=== PATIENT | female | born 1995 | race Asian ===

== ENCOUNTER 2018-07-18 13:24 | Emergency (ER) | payer BC ==
[2018-07-18 14:34] VITALS: BP 121/67
--- NOTE | 2018-07-18 14:34 | ED ---
Skin Complaint - HPI Summary HPI Summary: This patient is a 23 year old F presenting to ED with a chief complaint of rashes on bilateral arms, bilateral palms, and bilateral legs since three days ago. The CC is described as itchy, beginning on the ankles but not on the soles of feet. Patient rates pain 0/10 in severity. Symptoms aggravated by scratching. Symptoms alleviated by nothing. She reports itching on the stomach but no rash on the stomach. She denies sore throat, runny nose, fever, chills, and myalgia. PMHx of skin allergy on the back different from this episode. PSHx of appendix surgery. FHx of HTN in mother and grandmother and DM in grandmother. Patient drinks alcohol occasionally but does not smoke or use substances. - History of Current Complaint Chief Complaint: EDRashSkinAbscess Time Seen by Provider: 07/18/18 14:20 Stated Complaint: RASH PER PT Hx Obtained From: Patient Onset/Duration: Started Days Ago - 3 days, Still Present, Worse Since - Spreading to palms today Current Severity: None Pain Intensity: 0 Pain Scale Used: 0-10 Numeric Skin Location: Arm, Hand - Palm, Leg, Other: - Not on soles or stomach Aggravating Symptom(s): Other: - Scratching Alleviating Symptom(s): Nothing Associated Signs & Symptoms: Negative - Sore throat, runny nose, fever, chills, myalgia - Allergy/Home Medications Allergies/Adverse Reactions: Allergies Allergy/AdvReac Type Severity Reaction Status Date / Time No Known Allergies Allergy Verified 07/18/18 13:48 PMH/Surg Hx/FS Hx/Imm Hx Previously Healthy: No GI History: Reports: Other GI Disorders - Open appendix - Surgical History Surgery Procedure, Year, and Place: Appendix surgery Infectious Disease History: No Infectious Disease History: Denies: Traveled Outside the [place] in Last 30 Days - Family History Known Family History: Positive: Hypertension, Diabetes - Social History Alcohol Use: Occasionally Hx Substance Use: No Substance Use Type: Reports: None Hx Tobacco Use: No Smoking Status (MU): Never Smoked Tobacco Review of Systems Negative: Fever, Chills Negative: Sore Throat, Nasal Discharge Negative: Myalgia Skin: Negative - Rash on soles, Other - Itching on bilateral arms, bilateral palms, bilateral legs, stomach Positive: Rash - bilateral arms, bilateral palms, bilateral legs All Other Systems Reviewed And Are Negative: Yes Physical Exam - Summary Physical Exam Summary: VITAL SIGNS: Reviewed. GENERAL: Patient is a well-developed and nourished female who is lying comfortable in the stretcher. Patient is not in any acute respiratory distress. HEAD AND FACE: No signs of trauma. No ecchymosis, hematomas or skull depressions. No sinus tenderness. EYES: PERRLA, EOMI x 2, No injected conjunctiva, no nystagmus. EARS: Hearing grossly intact. Ear canals and tympanic membranes are within normal limits. MOUTH: No lip or tongue swelling. NECK: Supple, trachea is midline, no adenopathy, no JVD, no carotid bruit, no c- spine tenderness, neck with full ROM. CHEST: Symmetric, no tenderness at palpation LUNGS: Clear to auscultation bilaterally. No wheezing or crackles. CVS: Regular rate and rhythm, S1 and S2 present, no murmurs or gallops appreciated. ABDOMEN: Soft, non-tender. No signs of distention. No rebound no guarding, and no masses palpated. Bowel sounds are normal. EXTREMITIES: FROM in all major joints, no edema, no cyanosis or clubbing. NEURO: Alert and oriented x 3. No acute neurological deficits. Speech is normal and follows commands. SKIN: Rash on upper and lower extremities only on exposed surfaces. Triage Information Reviewed: Yes Vital Signs On Initial Exam: Initial Vitals Temp Pulse Resp BP Pulse Ox 97.7 F 72 16 125/66 99 07/18/18 13:44 07/18/18 13:44 07/18/18 13:44 07/18/18 13:44 07/18/18 13:44 Vital Signs Reviewed: Yes Diagnostics - Vital Signs Vital Signs Temp Pulse Resp BP Pulse Ox 07/18/18 13:44 97.7 F 72 16 125/66 99 - Laboratory Lab Statement: Any lab studies that have been ordered have been reviewed, and results considered in the medical decision making process. Course/Dx - Course Assessment/Plan: This patient is a 23-year-old female who presents to the emergency department with chief complaint of having a rash and itching in the upper extremities and lower extremities. This rash is and the exposed areas. ED course the patient is hemodynamically stable, she doesnt have any fevers, she doesnt have any [place] spots in the mouth, she doesnt have any other rash except in the exposed areas I believe the patient has a atypical urticaria. Therefore the patient was discharged home and follow up with [facility] on Friday. The patient understands and agrees. Patient is hemodynamically stable. - Diagnoses Provider Diagnoses: Dermatitis Discharge - Sign-Out/Discharge Documenting (check all that apply): Patient Departure - Discharge Patient Received Moderate/Deep Sedation with Procedure: No - Discharge Plan Condition: Stable Disposition: HOME Prescriptions: diPHENhydraMINE PO* [Benadryl PO 25 MG TAB*] 25 mg PO TID PRN #30 tab PRN Reason: Itching Triamcinolone 0.1% CREAM(NF) [Kenalog Cream 0.1%(NF)] 1 applic TOPICAL BID #1 tube Patient Education Materials: Urticaria (ED) Referrals: [facility] [Outside] - 2 Days Additional Instructions: Follow-up with your primary care provider in 3 days. RETURN THE ER FOR CHANGING OR WORSENING SYMPTOMS. - Billing Disposition and Condition Condition: STABLE Disposition: Home - Attestation Statements Document Initiated by Vincenzo: Yes Documenting Scribe: Shahram Mcknight Provider For Whom Vincenzo is Documenting (Include Credential): Mamadou Tinajero MD Scribe Attestation: I, Shahram Mcknight, scribed for Mamadou Tinajero MD on 07/18/18 at 2130. Scribe Documentation Reviewed: Yes Provider Attestation: The documentation as recorded by the Shahram burnette accurately reflects the service I personally performed and the decisions made by me, Mamadou Tinajero MD Status of Scribe Document: Viewed
== END 2018-07-18 14:32 | disposition home or self-care (01) ==
LOC: ED 13:24
DX: L30.9 Dermatitis, unspecified (principal); R21 Rash and other nonspecific skin eruption
CPT/HCPCS: 99282